=== PATIENT | male | born 1950 | race Caucasian/White ===

== ENCOUNTER 2018-05-15 19:57 | Observation (INO) ==
--- NOTE | 2018-05-15 20:34 | ED ---
HPI General Chief Complaint: Chest Pain Stated Complaint: chest pain Source: patient Mode of arrival: ambulatory Limitations: no limitations History of Present Illness HPI narrative: 67-year-old male presents to the emergency department by private transportation for evaluation of epigastric chest pain with intermittent shortness of breath and constipation. Patient reports that one week ago 05/10/18 he had traveled to [place] to have right hip replacement performed and then returned home to [place] Saturday 2 days ago postoperatively. Patient states he decided to have his surgery in [place] even though he lives in [place] because he had decided he wanted to have his surgery there and was very happy with his surgery. Patient states that he has had constipation since his surgery. Patient did contact his orthopedic surgeon who encouraged him to increase fluid hydration decrease her chronic opiate use for pain management and use over-the- counter stool softeners. Patient states he has had no response to this and then today started noticing subxiphoid chest pressure and pain primarily epigastric with intermittent shortness of breath. Patient denies any previous history of shortness of breath does not note any increased chest discomfort or epigastric discomfort with deep breathing does not describe any pleuritic pain or hemoptysis. Patient denies any known history of previous history of clotting disorder and denies any new lower extremity pain or swelling. Patient reports surgical site appears unchanged and dressing appears dry. Patient is wearing sequential pneumatic stockings which she has been wearing at all times since his surgery and was transported back home with pneumatic stockings. Patient denies any family history of clotting disorder. Patient denies any connective tissue or autoimmune disorder or malignancy. Patient she does not report any fever or chills. Patient does not report any chest pain at this time but states in route to the hospital his shortness of breath and his discomfort was quite severe. Patient does not report any shortness of breath or pain at this time. Patient denies history of CAD, dyslipidemia, hypertension , diabetes, tobaccoism or family history of premature onset heart disease. Patient also has indwelling urinary catheter and has appointment to have the catheter removed by his local urologist Dr. Vallejo tomorrow primary care provider is Dr. Phelan. complaint: chest pain (epigastric) STEMI Alert: No Onset (ago): day(s) Duration: intermittent Onset: other (Unable to associate activity with onset of symptoms) Pain location: substernal and epigastric Severity: mild (Currently 0 to mild can become moderate in intensity.) Quality: tightness and dull Pain radiation: none Relieving factors: nothing Exacerbating factors: nothing Context: recent surgery (Right hip replacement 05/10/18 in [place]) Associated symptoms: diaphoresis and dyspnea Treatments prior to arrival chest pain: other (Pain medication [id number] stool softener) Related Data Home Medications Medication Instructions Recorded Confirmed aspirin [Aspirin Low Dose] 81 mg PO BID 05/15/18 05/15/18 dutasteride-tamsulosin [Randee] 1 cap PO HS 05/15/18 05/15/18 polyethylene glycol 3350 [Miralax] 1 pack PO DAILY 05/15/18 05/15/18 sennosides-docusate sodium [Stool 1 tab PO BID PRN 05/15/18 05/15/18 Softener-Laxative] sulfamethoxazole-trimethoprim 1 tab PO BID 05/15/18 05/15/18 [Bactrim DS] tramadol 50 - 100 mg PO QID PRN 05/15/18 05/15/18 Allergies Allergy/AdvReac Type Severity Reaction Status Date / Time No Known Allergies Allergy Verified 05/15/18 20:12 Review of Systems ROS: all other systems reviewed are negative [facility] Medical History Medical History Enlarged prostate (Acute) History of pneumonia (Acute) Left inguinal hernia (Acute) Surgical History Surgical History History of right hip replacement (Acute) Social History Social History Substance History: No History of Abuse Second Hand Smoke Exposure: No Smoking Status: Never smoker Tobacco Type: Cigarettes How Often Do You Have a Drink Containing Alcohol: Never Recent Travel in [facility] within the Last 8 Weeks: Yes Recent Out of Country Travel within the Last 8 Weeks: No Immunization History Tetanus Immunization: <5 Years Hx Influenza Vaccine This Season: Yes Exam Narrative Exam Narrative: GENERAL: Well-nourished, well-developed patient. No acute distress no respiratory distress; GCS 15 SKIN: Focused skin assessment warm/dry. HEAD: Normocephalic. EYES: No scleral icterus. No injection or drainage. NECK: Supple, trachea midline. No JVD or lymphadenopathy. CARDIOVASCULAR: Regular rate and rhythm without murmurs, gallops, or rubs. RESPIRATORY: Breath sounds equal bilaterally. No accessory muscle use. GASTROINTESTINAL: Abdomen soft, non-tender, nondistended. Rectal exam: No external changes no lesions no tears no fissure no hemorrhoids; normal sphincter tone; bolus of stool in the rectal vault. ETAL: No cyanosis, or edema. Attention right lower extremity some mild resolving bruising to the proximal lateral proximal right lower extremity bilateral dorsalis pedis pulses 2+ to palpation intact flexion extension of the hips bilaterally knees bilateral ankle dorsi and plantar flexion. BACK: Nontender without obvious deformity. No CVA tenderness. Course Initial Documented Vital Signs Temperature 98.0 F 05/15/18 20:09 Pulse Rate 94 H 05/15/18 20:09 Respiratory Rate 20 05/15/18 20:09 Blood Pressure 160/82 H 05/15/18 20:09 Pulse Oximetry 94 L 05/15/18 20:09 Last Documented Vital Signs Temperature 97.6 F 05/16/18 03:26 Pulse Rate 75 05/16/18 03:28 Respiratory Rate 20 05/16/18 03:26 Blood Pressure 134/64 05/16/18 03:26 Pulse Oximetry 96 05/16/18 03:43 Critical Care Time Critical Care Time: Yes Total Critical Care Time: 35 Attestation: Aggregate critical care time was 35 minutes. Time to perform other separately billable procedures was not included in the critical care time. My time did not include minutes spent treating any other patients simultaneously or on activities that did not directly contribute to the patient's treatment. The services I provided to this patient were to treat and/or prevent clinically significant deterioration that could result in: Myocardial infarction, obstructive shock, I provided critical care services requiring my management, as noted below: Chart data review, documentation time, medication orders and management, vital sign assessments/reviewing monitor data, ordering and reviewing lab tests, ordering and interpreting/reviewing x-rays and diagnostic studies, care of the patient and discussion of the patient with the admitting physicians. Medical Decision Making MDM Narrative Medical decision making narrative: 67-year-old male presents to the emergency department for complaint of chest pain epigastric pain constipation shortness of breath 1 week status post hip replacement performed in [place] and 2 days status post plane flight home. Patient has been taking over the counter stool softeners without symptom relief is also been taking prescription opiates oxycodone for postoperative pain patient placed on secured entrance monitor with continuous pulse oximetry IV access obtained specimens collected and sent for resulting EKG performed EKG is normal sinus rhythm rate is [address] elevation or injury pattern change noted artifact is present at baseline At 10:20 PM patient's lab values are grossly within normal range CK total is mildly elevated for 7 however patient is postoperative and troponin I 0.05 EKG shows no acute ST elevation injury pattern or ectopy chest x-ray is remarkable for small area of left base consolidation in view of patient's recent surgery and recent plane flight will proceed with CT pulmonary angiogram to evaluate for PE also in view of patient's abdominal pain will include CT abdomen and pelvis. Patient has received aspirin and maintenance IV fluids. CT negative for PE and no acute intra-abdominal or pelvic process other than large stool bolus in the rectum; this information is shared with the patient; repeat EKG is sinus rhythm with no acute ST elevation or injury pattern change noted repeat CK troponin pending; digital disimpaction attempted without success the patient given Dulcolax suppository No response to Dulcolax suppository therefore fleets enema administered. Patient's case discussed with on-call medicine service. Admitted to chest pain center per protocol to Eunice Mcnair, accepted by [facility] MD service. Medical Screen Exam Complete: Yes Emergency Medical Condition: Yes Differential Diagnosis Differential Diagnosis: Atypical chest pain, epigastric pain, constipation, ACS , MD, pulmonary embolism, pneumonia, sepsis, bowel obstruction, UTI, postoperative wound infection, arrhythmia Medical Records Medical records reviewed: Yes I reviewed the patient's medical records. Lab Data Lab results reviewed: Yes I reviewed the patient's lab results. Result diagrams: 05/15/18 20:10 05/15/18 20:10 Lab Results 05/15/18 05/15/18 05/15/18 Range/Units 20:10 20:10 20:10 CBC w Diff Auto diff final WBC 6.9 (4.0-11.0) th/mm3 RBC 3.93 L (4.50-5.90) mil/mm3 Hgb 11.6 L (13.0-17.0) gm/dL Hct 34.0 L (39.0-51.0) % MCV 86.6 (80.0-100.0) fL MCH 29.6 (27.0-34.0) pg MCHC 34.2 (32.0-36.0) % RDW 13.3 (11.6-17.2) % Plt Count 426 (150-450) th/mm3 MPV 7.9 (7.0-11.0) fL Neut % (Auto) 66.2 (16.0-70.0) % Lymph % (Auto) 18.0 (9.0-44.0) % [place] % (Auto) 13.1 H (0.0-8.0) % Eos % (Auto) 2.4 (0.0-4.0) % Baso % (Auto) 0.3 (0.0-2.0) % Neut # (Auto) 4.6 (1.8-7.7) th/mm3 Lymph # (Auto) 1.2 (1.0-4.8) th/mm3 [place] # (Auto) 0.9 (0.0-0.9) th/mm3 Eos # (Auto) 0.2 (0.0-0.4) th/mm3 Baso # (Auto) 0.0 (0.0-0.2) th/mm3 WBC Differential . Differential Comment . PT 10.9 (9.8-11.6) sec INR 1.1 Ratio APTT 28.8 (24.3-30.1) sec Sodium 136 (136-145) meq/L Potassium 3.8 (3.5-5.1) meq/L Chloride 101 (98-107) meq/L Carbon Dioxide 23.8 (21.0-32.0) meq/L Anion Gap 11 (5-15) meq/L BUN 11 (7-18) mg/dL Creatinine 0.96 (0.60-1.30) mg/dL Estimated GFR 78 L (>89) mL/min Random Glucose 104 (74-106) mg/dL Calcium 8.9 (8.5-10.1) mg/dL Magnesium 2.5 (1.5-2.5) mg/dL Total Bilirubin 1.6 H (0.2-1.0) mg/dL AST 51 H (15-37) U/L ALT 45 (12-78) U/L Alkaline Phosphatase 130 H (45-117) U/L Total Creatine Kinase 407 H (39-308) U/L CK-MB (CK-2) 1.2 (0.5-3.6) ng/mL CK-MB (CK-2) % 0.3 (0.0-4.0) % Troponin I 0.05 (0.02-0.05) ng/mL B-Natriuretic Peptide (0-100) pg/mL Total Protein 8.0 (6.4-8.2) g/dL Albumin 3.8 (3.4-5.0) g/dL Urine Color (Yellw/Straw) Urine Clarity (Clear) Urine pH (5.0-8.5) Ur Specific [place] (1.002-1.035) Urine Protein (Neg-Trace) mg/dL Urine Glucose (UA) (Negative) mg/dL Urine Ketones (Negative) mg/dL Urine Occult Blood (Negative) Urine Nitrate (Negative) Urine Bilirubin (Negative) Urine Ictotest (Negative) Urine Urobilinogen (Less than 2) mg/dL Ur Leukocyte Esterase (Negative) Urine RBC (0-3) /hpf Urine WBC (0-5) /hpf Ur Squamous Epith Cells (0-5) /hpf Micro UA Comment Ur Microscopic Review Urine Culture Comments 05/15/18 05/15/18 05/16/18 Range/Units 20:10 20:40 00:25 CBC w Diff WBC (4.0-11.0) th/mm3 RBC (4.50-5.90) mil/mm3 Hgb (13.0-17.0) gm/dL Hct (39.0-51.0) % MCV (80.0-100.0) fL MCH (27.0-34.0) pg MCHC (32.0-36.0) % RDW (11.6-17.2) % Plt Count (150-450) th/mm3 MPV (7.0-11.0) fL Neut % (Auto) (16.0-70.0) % Lymph % (Auto) (9.0-44.0) % [place] % (Auto) (0.0-8.0) % Eos % (Auto) (0.0-4.0) % Baso % (Auto) (0.0-2.0) % Neut # (Auto) (1.8-7.7) th/mm3 Lymph # (Auto) (1.0-4.8) th/mm3 [place] # (Auto) (0.0-0.9) th/mm3 Eos # (Auto) (0.0-0.4) th/mm3 Baso # (Auto) (0.0-0.2) th/mm3 WBC Differential Differential Comment PT (9.8-11.6) sec INR Ratio APTT (24.3-30.1) sec Sodium (136-145) meq/L Potassium (3.5-5.1) meq/L Chloride (98-107) meq/L Carbon Dioxide (21.0-32.0) meq/L Anion Gap (5-15) meq/L BUN (7-18) mg/dL Creatinine (0.60-1.30) mg/dL Estimated GFR (>89) mL/min Random Glucose (74-106) mg/dL Calcium (8.5-10.1) mg/dL Magnesium (1.5-2.5) mg/dL Total Bilirubin (0.2-1.0) mg/dL AST (15-37) U/L ALT (12-78) U/L Alkaline Phosphatase (45-117) U/L Total Creatine Kinase 320 H (39-308) U/L CK-MB (CK-2) Less than 1.0 (0.5-3.6) ng/mL CK-MB (CK-2) % 0.3 (0.0-4.0) % Troponin I 0.04 (0.02-0.05) ng/mL B-Natriuretic Peptide 37 (0-100) pg/mL Total Protein (6.4-8.2) g/dL Albumin (3.4-5.0) g/dL Urine Color Yellow (Yellw/Straw) Urine Clarity Clear (Clear) Urine pH 7.5 (5.0-8.5) Ur Specific [place] 1.015 (1.002-1.035) Urine Protein Trace (Neg-Trace) mg/dL Urine Glucose (UA) Negative (Negative) mg/dL Urine Ketones 80 or greater H (Negative) mg/dL Urine Occult Blood Trace (Negative) Urine Nitrate Negative (Negative) Urine Bilirubin Negative (Negative) Urine Ictotest Negative (Negative) Urine Urobilinogen 1.0 (Less than 2) mg/dL Ur Leukocyte Esterase Negative (Negative) Urine RBC 0-3 (0-3) /hpf Urine WBC 0-5 (0-5) /hpf Ur Squamous Epith Cells 0-5 (0-5) /hpf Micro UA Comment Cath-culture not ind Ur Microscopic Review Microscopic reviewed Urine Culture Comments Cath-cult not ind Imaging Data Radiologist's impression: Chest X-Ray 05/15/18 20:23 CONCLUSION: Trace left base consolidation. Chest CTA 05/16/18 00:22 CONCLUSION: 1. No CT evidence for pulmonary artery embolism. 2. Coronary artery calcifications. 3. 6 mm nodule in the right lower lobe abutting the major fissure. Recommend follow-up CT examination in 6-12 months per 2017 Fleischner criteria. 4. Minimal groundglass opacities in the lower lobes bilaterally, likely atelectasis. Abdomen/Pelvis CT 05/16/18 00:23 CONCLUSION: 1. Large amount of stool in the rectum. 2. Otherwise, no acute CT abnormality in the abdomen or pelvis. 3. Ancillary findings include splenomegaly, bilateral renal cysts most of which are too small to fully characterize, right hip arthroplasty and degenerative changes of the lower lumbar spine. ECG Data EKG Prior to Arrival: No Attestation: I personally reviewed and interpreted this ECG as follows: Prior ECG tracings: not available for review Interpretation: EKG: normal sinus rhythm rate is [address] elevation or injury pattern change noted artifact is present at baseline Discharge Plan Discharge Disposition Patient Disposition: 30 Still Patient Discharge Condition Condition: Stable Discharge Details Diagnosis: Chest pain, Constipation Physicians Team ED Provider: Ada Moreno Primary Care Provider: Tyler Welch Attending Provider: Kaley Mar Status ED Status: Admitted Observation Patient
[2018-05-15 20:46] LABS: Clarity,Urine Clear (Clear); Color,Urine Yellow (Yellw/Straw); Glucose,Urine (UA) Negative (Negative); Leukocyte Esterase,Urine Negative (Negative); Nitrite,Urine Negative (Negative); PH,Urine 7.5 (5.0-8.5); Specific Gravity,Urine 1.015 (1.002-1.035)
[2018-05-15 20:46] LABS: Baso % (Auto) 0.3 % (0.0-2.0); Eos # (Auto) 0.2 th/mm3 (0.0-0.4); Eos % (Auto) 2.4 % (0.0-4.0); Hemoglobin 11.6 gm/dL (13.0-17.0); Lymph # (Auto) 1.2 th/mm3 (1.0-4.8); Mean Corpuscular HGB Conc 34.2 % (32.0-36.0); Mean Corpuscular Hemoglobin 29.6 pg (27.0-34.0); Mean Corpuscular Volume 86.6 fL (80.0-100.0); Mean Platelet Volume 7.9 fL (7.0-11.0); Mono # (Auto) 0.9 th/mm3 (0.0-0.9); Mono % (Auto) 13.1 % (0.0-8.0); Neut # (Auto) 4.6 th/mm3 (1.8-7.7); Neut % (Auto) 66.2 % (16.0-70.0); Platelet Count 426 th/mm3 (150-450); Red Blood Count 3.93 mil/mm3 (4.50-5.90); Red Cell Distribution Width 13.3 % (11.6-17.2); White Blood Count 6.9 th/mm3 (4.0-11.0)
[2018-05-15 20:53] LABS: Chloride 101 meq/L (98-107); Potassium 3.8 meq/L (3.5-5.1); Sodium 136 meq/L (136-145)
[2018-05-15 20:57] LABS: Albumin 3.8 g/dL (3.4-5.0); Anion Gap 11 meq/L (5-15); Blood Urea Nitrogen 11 mg/dL (7-18); Calcium 8.9 mg/dL (8.5-10.1); Carbon Dioxide 23.8 meq/L (21.0-32.0); Glucose,Random 104 mg/dL (74-106); Magnesium 2.5 mg/dL (1.5-2.5)
[2018-05-15 20:59] LABS: Activated Partial Thrombo Time 28.8 sec (24.3-30.1); INR 1.1 Ratio; Prothrombin Time 10.9 sec (9.8-11.6)
[2018-05-15 21:00] LABS: Alanine Aminotransferase 45 U/L (12-78); Aspartate Aminotransferase 51 U/L (15-37)
[2018-05-15 21:01] LABS: Glomerular Filtration Rate 78 mL/min (>89)
[2018-05-15 21:01] LABS: Bilirubin,Urine Negative (Negative); Ictotest,Urine Negative (Negative); RBC,Urine 0-3 /hpf (0-3); Squamous Epithelial Cell,Urine 0-5 /hpf (0-5); WBC,Urine 0-5 /hpf (0-5)
[2018-05-15 21:03] LABS: Alkaline Phosphatase 130 U/L (45-117); Creatine Kinase 407 U/L (39-308)
[2018-05-15 21:05] LABS: Troponin I 0.05 ng/mL (0.02-0.05)
--- NOTE | 2018-05-15 21:13 | XR ---
EXAM DATE: 05/15/2018 9:09 PM EDT AGE/SEX: 67 years / Male INDICATIONS: Chest pain and constipation for one week. CLINICAL DATA: This is the patient's initial encounter. Patient reports that signs and symptoms have been present for 1 week and indicates a pain score of 5/10. MEDICAL/SURGICAL HISTORY: None. . hip replacement. COMPARISON: PO[facility], XR CHEST PA AND LAT, 11/14/2015. . FINDINGS: Trace ill-defined infiltrate seen left base. Right lung appears clear. No pleural effusion or pneumot horax on either side. Heart size stable, within normal limits. CONCLUSION: Trace left base consolidation. Electronically signed by: Torrey Crockett MD 05/15/2018 9:11 PM EDT
[2018-05-15 21:15] LABS: CKMB Percent 0.3 % (0.0-4.0); Creatine Kinase MB 1.2 ng/mL (0.5-3.6)
[2018-05-15] MEDS ORDERED: Sod Chloride 0.9% Inj 1,000 ML IV.CONT SCH (22:30)
--- NOTE | 2018-05-16 00:39 | CT ---
EXAM DATE: 05/16/2018 12:18 AM EDT AGE/SEX: 67 years / Male INDICATIONS: Chest pain. Possible embolism. CLINICAL DATA: This is the patient's initial encounter. Patient reports that signs and symptoms have been present for 1 day and indicates a pain score of 4/10. MEDICAL/SURGICAL HISTORY: . Enlarged prostate. Pneumonia. Left inguinal hernia. . Right hip replac ement. RADIATION DOSE: 21.46 CTDI (mGy) COMPARISON: [facility], CHEST 1V SINGLE AP, 05/15/2018. . TECHNIQUE: Volumetric scanning was performed using a multi-row detector CT scanner during bolus infu shalini of 90 ml Omnipaque 350 (iohexol) nonionic water-soluble contrast as a cumulative dose for multi ple exams. The data was post processed with a variety of visualization algorithms including full volu me maximum intensity projection and sliding thin slab reformation. Using automated exposure control and adjustment of the mA and/or kV according to patient size, radiation dose was kept as low as reaso nably achievable to obtain optimal diagnostic quality images. DICOM format image data is available e lectronically for review and comparison. FINDINGS: Pulmonary Arteries: No filling defects are seen in the pulmonary arteries through the segmental vess els. The main pulmonary artery is normal in diameter. Lun mm oval solid nodule in the superior segment of the right lower lobe abutting the major fiss ure. Minimal groundglass opacities in the posterior lower lobes bilaterally. Pleura: No effusion, significant pleural thickening or pneumothorax. Mediastinum: Coronary artery calcifications. Heart is unremarkable without significant pericardial e ffusion. No significant mediastinal adenopathy. Osseous Structures: Degenerative changes of the thoracic spine without significant focal lytic or eros stic bony lesions. Other: Visualized upper abdomen demonstrates a very small hiatal hernia. CONCLUSION: 1. No CT evidence for pulmonary artery embolism. 2. Coronary artery calcifications. 3. 6 mm nodule in the right lower lobe abutting the major fissure. Recommend follow-up CT examinatio n in 6-12 months per 2017 Fleischner criteria. 4. Minimal groundglass opacities in the lower lobes bilaterally, likely atelectasis. Electronically signed by: Augustine Moralez MD 05/16/2018 12:38 AM EDT
--- NOTE | 2018-05-16 00:45 | CT ---
EXAM DATE: 05/16/2018 12:19 AM EDT AGE/SEX: 67 years / Male INDICATIONS: Chest pain. Possible embolism. CLINICAL DATA: This is the patient's initial encounter. Patient reports that signs and symptoms have been present for 1 day and indicates a pain score of 4/10. MEDICAL/SURGICAL HISTORY: . Enlarged prostate. Pneumonia. Left inguinal hernia. . Right hip re placement. ORAL CONTRAST: No oral contrast ingested. RADIATION DOSE: 18.46 CTDI (mGy) COMPARISON: POI, XR HIP AP AND LAT, RIGHT, 01/24/2018. . TECHNIQUE: Multiple contiguous axial images were obtained through the abdomen and pelvis following b olus infusion of 90 ml Omnipaque 350 (iohexol) nonionic water-soluble contrast as a cumulative dose for multiple exams. No oral contrast ingested. Using automated exposure control and adjustment of t he mA and/or kV according to patient size, radiation dose was kept as low as reasonably achievable to obtain optimal diagnostic quality images. DICOM format image data is available electronically for r eview and comparison. FINDINGS: LOWER LUNGS: The visualized lower lungs are clear. LIVER: The liver has a homogeneous density without space-occupying lesion. There is no dilation of t he biliary tree. SPLEEN: Prominent in size measuring up to 16 cm. PANCREAS: Unremarkable without mass or calcification. KIDNEYS: Kidneys are symmetrical in size and demonstrate symmetrical enhancement without evidence fo r radiopaque renal calculi or hydronephrosis. There are multiple bilateral subcentimeter hypodense cy stic lesions which are too small to fully characterize. Dominant probable exophytic cyst arising from the superior pole of the left kidney measuring up to 2.7 cm. ADRENAL GLANDS: Unremarkable. AORTA: Jaylene-aneurysmal. BOWEL/MESENTERY: Large amount of stool in the rectum. Bowel otherwise appears unremarkable. Appendix is visualized and normal in appearance. No free fluid or drainable fluid collections. No pneumatosis or free air. ABDOMINAL WALL: Intact. RETROPERITONEUM: No evidence of adenopathy in the retrocrural, para-aortic, or deep pelvic regions. BLADDER: Decompressed secondary to Taylor catheter. REPRODUCTIVE: No abnormal masses or calcifications seen. BONY STRUCTURES: Right hip arthroplasty in place. Degenerative changes of the lumbar spine. CONCLUSION: 1. Large amount of stool in the rectum. 2. Otherwise, no acute CT abnormality in the abdomen or pelvis. 3. Ancillary findings include splenomegaly, bilateral renal cysts most of which are too small to ful ly characterize, right hip arthroplasty and degenerative changes of the lower lumbar spine. Electronically signed by: Augustine Moralez MD 05/16/2018 12:43 AM EDT
[2018-05-16] MEDS ORDERED: Bisacodyl 10 MG Supp RECTAL ONE (00:59)
[2018-05-16 01:01] LABS: Creatine Kinase 320 U/L (39-308)
[2018-05-16 01:02] LABS: Troponin I 0.04 ng/mL (0.02-0.05)
[2018-05-16 01:14] LABS: CKMB Percent 0.3 % (0.0-4.0)
[2018-05-16] MEDS ORDERED: Sod Phosphate/Sod Biphosphate (Adult) Enema 133 ML Bottle RECTAL ONE (02:04)
[2018-05-16 03:27] VITALS: BP 134/64
[2018-05-16 07:17] LABS: Troponin I 0.03 ng/mL (0.02-0.05)
--- NOTE | 2018-05-16 07:50 | ECG ---
Date Performed: 05/16/2018 Time Performed: 03:33:14 PTAGE: 67 years EKG: Sinus rhythm NORMAL ECG PREVIOUS TRACING : 05/16/2018 00.28 Since the previous tracing, no significant change noted DOCTOR: Jose L Singh Interpretating Date/Time 05/16/2018 07:49:06
--- NOTE | 2018-05-16 07:51 | ECG ---
Date Performed: 05/15/2018 Time Performed: 20:09:35 PTAGE: 67 years EKG: Sinus rhythm NORMAL ECG PREVIOUS TRACING : 08/28/2001 08.07 Since the previous tracing, no significant change noted DOCTOR: Jose L Singh Interpretating Date/Time 05/16/2018 07:49:25
--- NOTE | 2018-05-16 07:51 | ECG ---
Date Performed: 05/16/2018 Time Performed: 00:28:42 PTAGE: 67 years EKG: Sinus rhythm NORMAL ECG PREVIOUS TRACING : 05/15/2018 20.09 Since the previous tracing, no significant change noted DOCTOR: Jose L Singh Interpretating Date/Time 05/16/2018 07:49:15
[2018-05-16 08:04] VITALS: O2SAT 95
--- NOTE | 2018-05-16 09:19 | P.HP ---
History of Present Illness Primary Care Physician: Tyler Welch MD Chief Complaint: Abdominal pain, chest pain History of Present Illness: 67-year-old male with recent history of right hip replacement, urinary retention who presented to the hospital for evaluation of abdominal pain, chest pain. Patient states that he was just up in [place] where he underwent right hip surgery on 05/11/18. Patient indicates that he has been doing okay since he came home from his surgery. He had urinary retention post surgery requiring indwelling Taylor. Plans for removal today at his urologist office. Patient states he started developing abdominal pain in his lower abdomen yesterday. He had not had a bowel movement since 05/11/18. He thought he was constipated. He took some stool softener at home without any relief. Abdominal pain progressively got worse and then started developing pain in his epigastric and lower chest region which he rates as a 5/10 on a pain scale without any radiation to the neck, back, shoulder, arm. Patient denied any diaphoresis, lightheadedness, dizziness. Patient came to emergency department for evaluation and when he got out of the car he had a episode of shortness of breath. Patient was evaluated by ER physician. Workup was ascertained with CT scan which did show constipation, CTA of the chest did not indicate any pulmonary emboli. Does show a 6 mm nodule recommending outpatient follow-up. Initial cardiac enzymes were unremarkable. Patient does have minimal risk factors for cardiac disease to include age, male, history of tobacco use. Patient did undergo treatment for constipation with unsuccessful fecal disimpaction. Is recommended the patient be admitted the hospital for evaluation of his chest pain and constipation. During the night the patient has had at least 3 bowel movements and he feels much better. Patient denies any pain at this time. - Diagnosis (1) Chest pain (2) Constipation Review of Systems All other systems reviewed negative except as stated in HPI Cardiovascular: Reports chest pain Respiratory: Reports shortness of breath Gastrointestinal: Reports abdominal pain, Reports constipation PMFSH - History History Provided By: Patient - Medical History Medical History: Medical History (Last Reviewed 05/16/18 @ 08:39 by QUYNH Spencer) Enlarged prostate History of pneumonia Left inguinal hernia - Surgical History Surgical History: Surgical History (Last Updated 05/16/18 @ 08:40 by QUYNH Spencer) History of inguinal hernia repair History of right hip replacement - Family History Family History: Family History (Last Updated 05/16/18 @ 08:40 by QUYNH Spencer) Mother History of diabetes insipidus - Tobacco History Second Hand Smoke Exposure: No Tobacco Use In Past 30 Days: No (none in past 3 months) Smoking Status: Former smoker Tobacco Type: Cigarettes - Alcohol History How Often Do You Have a Drink Containing Alcohol: Never - Substance Use History Substance History: No History of Abuse - Travel History Recent Travel in the [place] Within the Last 8 Weeks: Yes Recent Travel Out of the Country Within the Last 8 Weeks: No - Immunization History Tetanus Immunization: <5 Years Hx Influenza Vaccine This Season: Yes Medications and Allergies Active Medications: Active Medications Aspirin (Ecotrin) 81 mg PO BID MARTIN Finasteride (Proscar) 5 mg PO HS MARTIN Sodium Chloride (Ns Inj) 1,000 mls @ 125 mls/hr IV.CONT .Q8H MARTIN Last Infusion: 05/16/18 03:18 Dose: 125 mls/hr Nitroglycerin (Nitrostat Sl) 0.4 mg SL Q5M PRN PRN Reason: CHEST PAIN Sodium Chloride (Ns Flush) 2 ml IV.FLUSH UNSCH PRN PRN Reason: FLUSH AFTER USING IV ACCESS Sodium Chloride (Ns Flush) 2 ml IV.FLUSH BID MARTIN Sodium Chloride (Ns Flush) 2 ml IV.FLUSH PRN PRN PRN Reason: FLUSH AFTER USING IV ACCESS Tamsulosin HCl (Flomax) 0.4 mg PO HS [facility] Allergies Allergy/AdvReac Type Severity Reaction Status Date / Time No Known Allergies Allergy Verified 05/15/18 20:12 Home Medications Medication Instructions Recorded Confirmed Type aspirin [Aspirin Low Dose] 81 mg PO BID 05/15/18 05/15/18 History dutasteride-tamsulosin [Randee] 1 cap PO HS 05/15/18 05/15/18 History polyethylene glycol 3350 [Miralax] 1 pack PO DAILY 05/15/18 05/15/18 History sennosides-docusate sodium [Stool 1 tab PO BID PRN 05/15/18 05/15/18 History Softener-Laxative] sulfamethoxazole-trimethoprim 1 tab PO BID 05/15/18 05/15/18 History [Bactrim DS] tramadol 50 - 100 mg PO QID PRN 05/15/18 05/15/18 History Exam Vital signs: Vital Signs 05/15/18 20:09 05/15/18 20:26 05/15/18 20:31 Temperature 98.0 F Pulse Rate 94 H Respiratory Rate 20 19 Blood Pressure 160/82 H Blood Pressure [Left Arm] 134/65 Blood Pressure [Right Arm] 145/73 H Pulse Oximetry 94 L 95 95 05/15/18 21:06 05/15/18 22:42 05/16/18 00:54 Temperature Pulse Rate 80 73 77 Respiratory Rate 18 Blood Pressure 133/66 140/68 134/63 Blood Pressure [Left Arm] Blood Pressure [Right Arm] Pulse Oximetry 95 98 94 L 05/16/18 02:15 05/16/18 03:15 05/16/18 03:26 Temperature 97.6 F Pulse Rate 74 79 77 Respiratory Rate 20 Blood Pressure 120/61 144/74 H 134/64 Blood Pressure [Left Arm] Blood Pressure [Right Arm] Pulse Oximetry 98 100 96 05/16/18 03:28 05/16/18 03:30 05/16/18 03:43 Temperature Pulse Rate 75 Respiratory Rate Blood Pressure Blood Pressure [Left Arm] Blood Pressure [Right Arm] Pulse Oximetry 95 96 05/16/18 08:04 Temperature Pulse Rate Respiratory Rate Blood Pressure Blood Pressure [Left Arm] Blood Pressure [Right Arm] Pulse Oximetry 95 Intake & Output 05/15/18 05/16/18 05/16/18 18:59 06:59 18:59 Output Total 1000 / 1000 Balance -1000 / -1000 Weight 92.7 kg Output: Urine Amount (Catheter) 1000 / 1000 Indwelling Urethral Catheter 1000 / 1000 Other: # Voids 2 Date of Last Bowel Movement 05/16/18 # Bowel Movements 1 Weight On Admission 92.7 kg Narrative: GENERAL: Well-developed, well-nourished, in no acute distress. alert and orientated HEENT: Head is normocephalic without any lesions or masses noted. Facial features are symmetric. Eyes: Pupils equal round reactive to light. Extraocular muscles are intact. Conjunctivae were clear. Oropharyngeal: Pharynx without any erythema edema. Tongue is midline without deviation. Buccal mucosa is moist without any masses or lesions NECK: Supple without any masses. Trachea midline no deviation. No JVD, no bruits are appreciated CARDIAC: Regular rhythm, regular rate. S1/S2 are heard. No murmurs gallops or rubs. LUNGS: Clear to auscultation bilaterally. No wheeze, rhonchi or rales. No use of accessory muscles on inspiration or expiration. ABDOMEN: Soft, nontender. Nondistended. Bowel sounds heard in all 4 quadrants. No organomegaly or masses. Negative rebound, negative guarding EXTREMITIES: No edema, pulses are equal bilaterally. No cyanosis or clubbing NEUROLOGY: Mood and affect appear appropriate. Cranial nerves II through XII grossly intact. Muscle strength 5/5 in upper and lower extremities bilaterally. Deep tendon reflexes are 2+ in upper and lower extremities bilaterally. Results - Labs CBC & Chem 7: 05/15/18 20:10 05/15/18 20:10 Labs: Laboratory Results - last 24 hr 05/15/18 05/15/18 05/15/18 20:10 20:10 20:10 CBC w Diff Auto diff final WBC 6.9 RBC 3.93 L Hgb 11.6 L Hct 34.0 L MCV 86.6 MCH 29.6 MCHC 34.2 RDW 13.3 Plt Count 426 MPV 7.9 Neut % (Auto) 66.2 Lymph % (Auto) 18.0 [place] % (Auto) 13.1 H Eos % (Auto) 2.4 Baso % (Auto) 0.3 Neut # (Auto) 4.6 Lymph # (Auto) 1.2 [place] # (Auto) 0.9 Eos # (Auto) 0.2 Baso # (Auto) 0.0 WBC Differential . Differential Comment . PT 10.9 INR 1.1 APTT 28.8 Sodium 136 Potassium 3.8 Chloride 101 Carbon Dioxide 23.8 Anion Gap 11 BUN 11 Creatinine 0.96 Estimated GFR 78 L Random Glucose 104 Calcium 8.9 Magnesium 2.5 Total Bilirubin 1.6 H AST 51 H ALT 45 Alkaline Phosphatase 130 H Total Creatine Kinase 407 H CK-MB (CK-2) 1.2 CK-MB (CK-2) % 0.3 Troponin I 0.05 B-Natriuretic Peptide Total Protein 8.0 Albumin 3.8 Urine Color Urine Clarity Urine pH Ur Specific [place] Urine Protein Urine Glucose (UA) Urine Ketones Urine Occult Blood Urine Nitrate Urine Bilirubin Urine Ictotest Urine Urobilinogen Ur Leukocyte Esterase Urine RBC Urine WBC Ur Squamous Epith Cells Micro UA Comment Ur Microscopic Review Urine Culture Comments 05/15/18 05/15/18 05/16/18 20:10 20:40 00:25 CBC w Diff WBC RBC Hgb Hct MCV MCH MCHC RDW Plt Count MPV Neut % (Auto) Lymph % (Auto) [place] % (Auto) Eos % (Auto) Baso % (Auto) Neut # (Auto) Lymph # (Auto) [place] # (Auto) Eos # (Auto) Baso # (Auto) WBC Differential Differential Comment PT INR APTT Sodium Potassium Chloride Carbon Dioxide Anion Gap BUN Creatinine Estimated GFR Random Glucose Calcium Magnesium Total Bilirubin AST ALT Alkaline Phosphatase Total Creatine Kinase 320 H CK-MB (CK-2) Less than 1.0 CK-MB (CK-2) % 0.3 Troponin I 0.04 B-Natriuretic Peptide 37 Total Protein Albumin Urine Color Yellow Urine Clarity Clear Urine pH 7.5 Ur Specific [place] 1.015 Urine Protein Trace Urine Glucose (UA) Negative Urine Ketones 80 or greater H Urine Occult Blood Trace Urine Nitrate Negative Urine Bilirubin Negative Urine Ictotest Negative Urine Urobilinogen 1.0 Ur Leukocyte Esterase Negative Urine RBC 0-3 Urine WBC 0-5 Ur Squamous Epith Cells 0-5 Micro UA Comment Cath-culture not ind Ur Microscopic Review Microscopic reviewed Urine Culture Comments Cath-cult not ind 05/16/18 06:33 CBC w Diff WBC RBC Hgb Hct MCV MCH MCHC RDW Plt Count MPV Neut % (Auto) Lymph % (Auto) [place] % (Auto) Eos % (Auto) Baso % (Auto) Neut # (Auto) Lymph # (Auto) [place] # (Auto) Eos # (Auto) Baso # (Auto) WBC Differential Differential Comment PT INR APTT Sodium Potassium Chloride Carbon Dioxide Anion Gap BUN Creatinine Estimated GFR Random Glucose Calcium Magnesium Total Bilirubin AST ALT Alkaline Phosphatase Total Creatine Kinase 292 CK-MB (CK-2) CK-MB (CK-2) % Troponin I 0.03 B-Natriuretic Peptide Total Protein Albumin Urine Color Urine Clarity Urine pH Ur Specific [place] Urine Protein Urine Glucose (UA) Urine Ketones Urine Occult Blood Urine Nitrate Urine Bilirubin Urine Ictotest Urine Urobilinogen Ur Leukocyte Esterase Urine RBC Urine WBC Ur Squamous Epith Cells Micro UA Comment Ur Microscopic Review Urine Culture Comments - Imaging Impressions Chest X-Ray 05/15/18 20:23 CONCLUSION: Trace left base consolidation. Chest CTA 05/16/18 00:22 CONCLUSION: 1. No CT evidence for pulmonary artery embolism. 2. Coronary artery calcifications. 3. 6 mm nodule in the right lower lobe abutting the major fissure. Recommend follow-up CT examination in 6-12 months per 2017 Fleischner criteria. 4. Minimal groundglass opacities in the lower lobes bilaterally, likely atelectasis. Abdomen/Pelvis CT 05/16/18 00:23 CONCLUSION: 1. Large amount of stool in the rectum. 2. Otherwise, no acute CT abnormality in the abdomen or pelvis. 3. Ancillary findings include splenomegaly, bilateral renal cysts most of which are too small to fully characterize, right hip arthroplasty and degenerative changes of the lower lumbar spine. Caprini VTE Risk Assessment Caprini VTE Risk Assessment: Moderate/High Risk (score >= 2) Caprini Risk Assessment Model: Point Value = 1 Point Value = 2 Point Value = 3 Point Value = 5 Age 41-60 Minor surgery BMI > 25 kg/m2 Swollen legs Varicose veins or History of unexplained or recurrent spontaneous Oral contraceptives or hormone replacement Sepsis (< 1 month) Serious lung disease, including pneumonia (< 1 month) Abnormal pulmonary function Acute myocardial infarction Congestive heart failure (< 1 month) History of inflammatory bowel disease Medical patient at bed rest Age 61-74 Arthroscopic surgery Major open surgery (> 45 min) Laparoscopic surgery (> 45 min) Malignancy Confined to bed (> 72 hours) Immobilizing plaster cast Central venous access Age >= 75 History of VTE Family history of VTE Factor V Leiden Prothrombin [id number] Lupus anticoagulant Anticardiolipin antibodies Elevated serum homocysteine Heparin-induced thrombocytopenia Other congenital or acquired thrombophilia Stroke (< 1 month) Elective arthroplasty Hip, pelvis, or leg fracture Acute spinal cord injury (< 1 month) Prophylaxis Regimen: Total Risk Factor Score Risk Level Prophylaxis Regimen 0-1 Low Early ambulation 2 Moderate Order ONE of the following: *Sequential Compression Device (SCD) *Heparin 5000 units SQ BID 3-4 Higher Order ONE of the following medications: *Heparin 5000 units SQ TID *Enoxaparin/Lovenox 40 mg SQ daily (WT < 150 kg, CrCl > 30 mL/min) *Enoxaparin/Lovenox 30 mg SQ daily (WT < 150 kg, CrCl > 10-29 mL/min) *Enoxaparin/Lovenox 30 mg SQ BID (WT < 150 kg, CrCl > 30 mL/min) AND/OR *Sequential Compression Device (SCD) 5 or more Highest Order ONE of the following medications: *Heparin 5000 units SQ TID (Preferred with Epidurals) *Enoxaparin/Lovenox 40 mg SQ daily (WT < 150 kg, CrCl > 30 mL/min) *Enoxaparin/Lovenox 30 mg SQ daily (WT < 150 kg, CrCl > 10-29 mL/min) *Enoxaparin/Lovenox 30 mg SQ BID (WT < 150 kg, CrCl > 30 mL/min) AND *Sequential Compression Device (SCD) Assessment and Plan - Assessment (1) Chest pain Code(s): R07.9 - Chest pain, unspecified Status: Acute (2) Constipation Code(s): K59.00 - Constipation, unspecified Status: Acute - Plan Chest pain, atypical -Patient with risk factors include age, male, history of tobacco use -Patient has been ruled out for acute coronary event with serial cardiac enzymes that are negative -Serial EKG which reviewed by myself shows normal sinus rhythm without any changes -I offered the patient further testing to include myocardial perfusion study to evaluate for any underlying ischemia. Patient deferring any further testing at this time. -Patient to follow-up with his primary medical doctor for further evaluation if needed Constipation, resolved -Status post enemas, manual disimpaction -Discussed narcotic induced constipation. -Recommend the patient continue Yamila-Colace twice daily in outpatient setting until bowel movements are regular Urinary retention -Continue Randee -Patient to keep appointment with his urologist for Taylor removal Discharge Planning: Discharge home in stable condition Activity: Ad darlene. Diet: Regular diet Medication per medication reconciliation Follow-up with primary medical doctor in 1 week, patient keep appointment with urologist for urinary Taylor removal (1) Chest pain Qualifiers: Chest pain type: precordial pain Qualified Code(s): R07.2 - Precordial pain (2) Constipation Qualifiers: Constipation type: drug induced constipation Qualified Code(s): K59.03 - Drug induced constipation
[2018-05-16 09:57] VITALS: PULSE 78; RESP 23; TEMP 98.2
[2018-05-16] MEDS ORDERED: DUTASTERIDE TAMSULOSIN PO SCH (21:00)
[2018-05-16] MEDS ORDERED: Finasteride 5 MG Tablet PO SCH (21:00)
== END 2018-05-16 09:53 | disposition home or self-care (01) ==
LOC: PHED 19:57 → PHEDA 19:57 → PHICU 05-16 03:15
PROVIDERS: ADMIT Family Medicine; ATTEND Family Medicine